=== PATIENT | male | born 1965 | race American Indian/Alaskan Native ===

== ENCOUNTER 2018-12-02 21:44 | Observation (INO) | payer SELFPAY ==
--- NOTE | 2018-12-02 21:57 | Event Note ---
ED Screening Note ED Screening Note: severe left sided chest pain vomit x 1 today off and on for 2 days pmh denies rx denies This initial assessment/diagnostic orders/clinical plan/treatment(s) is/are subject to change based on patients health status, clinical progression and re- assessment by fellow clinical providers in the ED. Further treatment and workup at subsequent clinical providers discretion. Patient/guardian urged not to elope from the ED as their condition may be serious if not clinically assessed and managed. Initial orders include: labs ekg xray
--- NOTE | 2018-12-02 22:54 | XRay Report ---
CHEST 2 VIEWS INDICATION / CLINICAL INFORMATION: chest pain. COMPARISON: None available. FINDINGS: SUPPORT DEVICES: None. HEART / MEDIASTINUM: No significant abnormality. LUNGS / PLEURA: No significant pulmonary or pleural abnormality. No pneumothorax. ADDITIONAL FINDINGS: No significant additional findings. IMPRESSION: 1. No acute findings. Signer Name: Erwin Martinez MD Signed: 12/02/2018 10:49 PM Workstation Name: [id number]
[2018-12-02 22:56] LABS: Basophils % (Auto) 0.3 % (0.0-1.8); Hematocrit 43.1 % (35.5-45.6); Hemoglobin 14.7 gm/dl (11.8-15.2); Lymphocytes # (Auto) 2.5 K/mm3 (1.2-5.4); Lymphocytes % (Auto) 19.1 % (13.4-35.0); Mean Corpuscular HGB Conc 34 % (32-34); Mean Corpuscular Volume 99 fl (84-94); Monocytes # (Auto) 0.8 K/mm3 (0.0-0.8); Monocytes % (Auto) 6.6 % (0.0-7.3); Platelet Count 335 K/mm3 (140-440); Red Blood Count 4.37 M/mm3 (3.65-5.03); Red Cell Distribution Width 13.5 % (13.2-15.2)
[2018-12-02 23:12] LABS: Alanine Aminotransferase 26 units/L (7-56); BUN/Creatinine Ratio 16; Blood Urea Nitrogen 24 mg/dL (9-20); Hemolysis Index 3
[2018-12-03 03:17] LABS: Bilirubin,Urine NEG (Negative); Blood,Urine NEG (Negative); Color,Urine Yellow (Yellow); Mucus,Urine FEW /HPF; Urobilinogen,Urine < 2.0 mg/dL (<2.0)
--- NOTE | 2018-12-03 04:28 | XRay Report ---
RIGHT HAND, 2 VIEWS 12/03/2018 INDICATION / CLINICAL INFORMATION: injury. COMPARISON: None available. FINDINGS: Soft tissue swelling of the base of the ring finger. No fracture or dislocation. No radiopaque soft tissue foreign body. Signer Name: Erwin Martinez MD Signed: 12/03/2018 4:23 AM Workstation Name: [id number]
[2018-12-03] MEDS ORDERED: NACL 0.9% 1000 ML 1,000 ML IV ONE (05:37)
[2018-12-03] MEDS ORDERED: ZOFRAN IV ONE (05:37)
[2018-12-03] MEDS ORDERED: TORADOL IV ONE (05:49)
[2018-12-03] MEDS ORDERED: TORADOL ONE (05:52)
--- NOTE | 2018-12-03 06:21 | Emergency Department Report ---
ED Chest Pain HPI - General Chief Complaint: Chest Pain Stated Complaint: CHEST PAIN HAND DIZZINESS Time Seen by Provider: 12/03/18 06:10 Source: patient Mode of arrival: Ambulatory Limitations: No Limitations - History of Present Illness Initial Comments: Patient is a 53-year-old male that presents emergency room with complaints of left-sided chest pain that started 2 days ago. Patient states his symptoms are worsening. Patient states today he started having dizziness, shortness of breath and he threw up one time today. Patient states the chest pain becoming more frequent and more severe. Patient states chest pain is 10 out of 10. Patient states the pain is nonradiating. MD Complaint: chest pain -: Sudden Onset: during rest Pain Location: substernal, left chest Pain Radiation: LUE Severity: severe Severity scale (0 -10): 7 Quality: pressure Consistency: constant Improves With: rest Worsens With: exertion re: nausea, vomting, dyspnea. denies: diaphoresis, sense of impending doom Other Symptoms: denies: cough, fever, syncope, rash, acid taste in mouth, leg swelling, palpitations, burping Treatments Prior to Arrival: none Aspirin use within the Past 7 Days: (0) No - Related Data On Oral Contraceptives: No Home Medications Medication Instructions Recorded Confirmed Last Taken No Known Home Medications [No 12/03/18 12/03/18 Unknown Reported Home Medications] Allergies Allergy/AdvReac Type Severity Reaction Status Date / Time No Known Allergies Allergy Verified 12/03/18 08:06 Heart Score - HEART Score History: Moderately suspicious EKG: Non-specific Age: 45-65 Risk factors: No known risk factors Troponin: < normal limit HEART Score: 3 ED Review of Systems ROS: Stated complaint: CHEST PAIN HAND DIZZINESS Other details as noted in HPI Constitutional: denies: chills, fever Eyes: denies: eye pain, eye discharge, vision change ENT: denies: ear pain, throat pain Respiratory: shortness of breath. denies: cough, wheezing Cardiovascular: chest pain. denies: palpitations Endocrine: no symptoms reported Gastrointestinal: nausea, vomiting. denies: abdominal pain, diarrhea Genitourinary: denies: urgency, dysuria Musculoskeletal: denies: back pain, joint swelling, arthralgia Skin: denies: rash, lesions Neurological: denies: headache, weakness, paresthesias Psychiatric: denies: anxiety, depression Hematological/Lymphatic: denies: easy bleeding, easy bruising ED Past Medical Hx - Past Medical History Previous Medical History?: Yes Hx Asthma: Yes - Surgical History Past Surgical History?: No - Family History Family history: no significant - Social History Smoking Status: Former Smoker Substance Use Type: None - Medications Home Medications: Home Medications Medication Instructions Recorded Confirmed Last Taken Type No Known Home Medications [No 12/03/18 12/03/18 Unknown History Reported Home Medications] ED Physical Exam - General Limitations: No Limitations General appearance: alert, in no apparent distress - Head Head exam: Present: atraumatic, normocephalic - Eye Eye exam: Present: normal appearance - ENT ENT exam: Present: mucous membranes moist - Neck Neck exam: Present: normal inspection - Respiratory Respiratory exam: Present: normal lung sounds bilaterally. Absent: respiratory distress - Cardiovascular Cardiovascular Exam: Present: regular rate, normal rhythm. Absent: systolic murmur, diastolic murmur, rubs, gallop - GI/Abdominal GI/Abdominal exam: Present: soft, normal bowel sounds - Rectal Rectal exam: Present: deferred - Extremities Exam Extremities exam: Present: normal inspection - Back Exam Back exam: Present: normal inspection - Neurological Exam Neurological exam: Present: alert, oriented X3 - Psychiatric Psychiatric exam: Present: normal affect, normal mood - Skin Skin exam: Present: warm, dry, intact, normal color. Absent: rash ED Course Vital Signs 12/02/18 12/03/18 12/03/18 21:52 02:34 02:39 Temperature 98.3 F Pulse Rate 77 Respiratory 18 23 16 Rate Blood Pressure 135/92 Blood Pressure [Left] O2 Sat by Pulse 97 Oximetry 12/03/18 12/03/18 12/03/18 02:40 03:01 03:30 Temperature 98.4 F Pulse Rate 62 71 60 Respiratory 18 12 16 Rate Blood Pressure 162/72 169/73 Blood Pressure 151/81 [Left] O2 Sat by Pulse 99 95 95 Oximetry 12/03/18 12/03/18 12/03/18 04:00 04:31 04:41 Temperature Pulse Rate 68 63 64 Respiratory 17 16 16 Rate Blood Pressure 135/78 139/70 139/70 Blood Pressure [Left] O2 Sat by Pulse 99 95 97 Oximetry 12/03/18 12/03/18 12/03/18 04:51 05:01 05:11 Temperature Pulse Rate 64 62 65 Respiratory 18 15 16 Rate Blood Pressure 139/70 143/80 143/80 Blood Pressure [Left] O2 Sat by Pulse 96 99 96 Oximetry 12/03/18 12/03/18 12/03/18 05:21 05:30 05:41 Temperature Pulse Rate 64 63 66 Respiratory 19 17 14 Rate Blood Pressure 143/80 141/76 141/76 Blood Pressure [Left] O2 Sat by Pulse 96 93 99 Oximetry 12/03/18 12/03/18 12/03/18 05:51 06:01 06:11 Temperature Pulse Rate 81 59 L 58 L Respiratory 17 16 15 Rate Blood Pressure 141/76 141/76 141/76 Blood Pressure [Left] O2 Sat by Pulse 96 99 99 Oximetry 12/03/18 12/03/18 12/03/18 06:21 06:31 06:41 Temperature Pulse Rate 64 58 L 58 L Respiratory 23 15 16 Rate Blood Pressure 141/76 141/76 141/76 Blood Pressure [Left] O2 Sat by Pulse 100 99 98 Oximetry 12/03/18 12/03/18 12/03/18 06:51 07:01 07:11 Temperature Pulse Rate 59 L 61 67 Respiratory 15 19 13 Rate Blood Pressure 141/76 141/76 125/60 Blood Pressure [Left] O2 Sat by Pulse 100 100 99 Oximetry 12/03/18 12/03/18 12/03/18 07:12 07:21 07:30 Temperature Pulse Rate 64 57 L 60 Respiratory 16 13 14 Rate Blood Pressure 125/60 138/67 Blood Pressure 125/60 [Left] O2 Sat by Pulse 96 98 94 Oximetry 12/03/18 12/03/18 12/03/18 07:41 07:51 08:00 Temperature Pulse Rate 58 L 58 L 72 Respiratory 15 15 18 Rate Blood Pressure 138/67 138/67 138/67 Blood Pressure [Left] O2 Sat by Pulse 97 97 97 Oximetry 12/03/18 12/03/18 12/03/18 09:37 10:02 10:04 Temperature Pulse Rate Respiratory Rate Blood Pressure 126/72 174/84 159/69 Blood Pressure [Left] O2 Sat by Pulse Oximetry 12/03/18 12/03/18 12/03/18 10:05 10:07 10:09 Temperature Pulse Rate Respiratory Rate Blood Pressure 149/78 145/89 133/88 Blood Pressure [Left] O2 Sat by Pulse Oximetry - Reevaluation(s) Reevaluation #1: Discussed all results with patient. Patient to be admitted to the hospitalist service. Patient agrees with plan of care. 12/03/18 07:46 - Consultations Consultation #1: Hospitalist consulted for admission. Hospitalist to admit patient and assumed care of the patient. Bridging orders placed if the hospitalist requested. 12/03/18 07:46 VELASQUEZ score - Velasquez Score Age > 65: (0) No Aspirin use within the Past 7 Days: (0) No 3 or more CAD Risk Factors: (0) No 2 or more Angina events in past 24 hrs: (1) Yes Known CAD with more than 50% Stenosis: (0) No Elevated Cardiac Markers: (0) No ST Deviation Greater than 0.5mm: (0) No VELASQUEZ Score: 1 ED Medical Decision Making - Lab Data Result diagrams: 12/02/18 22:02 12/02/18 22:02 - EKG Data -: EKG Interpreted by Me EKG shows normal: sinus rhythm, axis, intervals, QRS complexes, ST-T waves Rate: normal - EKG Data Interpretation: LVH - Radiology Data Radiology results: report reviewed, image reviewed interpreted by me: Chest x-ray reviewed and no acute findings on chest x-ray RIGHT HAND, 2 VIEWS 12/03/2018 INDICATION / CLINICAL INFORMATION: injury. COMPARISON: None available. FINDINGS: Soft tissue swelling of the base of the ring finger. No fracture or dislocation. No radiopaque soft tissue foreign body. CHEST 2 VIEWS INDICATION / CLINICAL INFORMATION: chest pain. COMPARISON: None available. FINDINGS: SUPPORT DEVICES: None. HEART / MEDIASTINUM: No significant abnormality. LUNGS / PLEURA: No significant pulmonary or pleural abnormality. No pneumothorax. ADDITIONAL FINDINGS: No significant additional findings. IMPRESSION: 1. No acute findings. - Medical Decision Making Patient is a 53-year-old mellitus emergency with complaints of chest pain and shortness of breath and nausea. Patient admitted to the hospitalist service. Patient's EKG negative. Patient's initial cardiac workup negative. Patient's labs unremarkable except for new onset renal insufficiency. - Differential Diagnosis chest pain. Shortness of breath. ACS. Nausea. Critical Care Time: Yes Critical care attestation.: If time is entered above; I have spent that time in minutes in the direct care of this critically ill patient, excluding procedure time. Critical Care Time: 35 minutes ED Disposition Clinical Impression: SOB (shortness of breath), Renal insufficiency, Dizziness, Hyponatremia Chest pain Qualifiers: Chest pain type: unspecified Qualified Code(s): R07.9 - Chest pain, unspecified Disposition: DC-09 OP ADMIT IP TO THIS HOSP Is pt being admited?: Yes Does the pt Need Aspirin: No Condition: Critical Time of Disposition: 07:46
[2018-12-03] MEDS ORDERED: ASPIRIN PO ONE (06:31)
[2018-12-03] MEDS ORDERED: NACL 0.9% 1000 ML 1,000 ML IV SCH (08:00)
[2018-12-03] MEDS ORDERED: ZOFRAN IV PRN (12:11)
[2018-12-03] MEDS ORDERED: MORPHINE IV PRN (12:11)
[2018-12-03] MEDS ORDERED: PROVENTIL IH PRN (12:11)
[2018-12-03] MEDS ORDERED: SODIUM CHLORIDE FLUSH SYRINGE 10 ML IV PRN (12:11)
[2018-12-03] MEDS ORDERED: TYLENOL PO PRN (12:11)
--- NOTE | 2018-12-03 12:11 | History and Physical Report ---
History of Present Illness Date of examination: 12/03/18 Date of admission: 12/03/18 07:46 Past History Past Medical History: No medical history Past Surgical History: appendectomy, Other (left inguinal hernia rep[air) Social history: single, full code. denies: smoking, alcohol abuse Family history: no significant family history Medications and Allergies Allergies Allergy/AdvReac Type Severity Reaction Status Date / Time No Known Allergies Allergy Verified 12/03/18 08:06 Home Medications Medication Instructions Recorded Confirmed Last Taken Type Famotidine [Pepcid] 20 mg PO BID #30 tablet 12/03/18 Unknown Rx Active Meds: Active Medications Sodium Chloride (Nacl 0.9% 1000 Ml) 1,000 mls @ 125 mls/hr IV DIRECT BABAK Exam - Physical Exam Narrative exam: Gen: Not in acute distress, lying in bed, HEENT: Normocephalic, atraumatic Neck: supple, no JVD Heart: S1 and S2 reg, no murmurs, rubs or gallop Lungs: Clear to auscultation bilat, no wheeze Abd: soft, non tender, non distended, normal BS Ext: No edema, no clubbing, no cyanosis Neuro:awake,alert, Oriented X 3. No focal signs Psych: Normal mood - Constitutional Vitals: Temp Pulse Resp BP Pulse Ox 98.4 F 72 18 133/88 97 12/03/18 02:40 12/03/18 08:00 12/03/18 08:00 12/03/18 10:09 12/03/18 08:00 Results - Labs CBC & Chem 7: 12/02/18 22:02 12/02/18 22:02 Labs: Abnormal lab results 12/02/18 12/02/18 Range/Units 22:02 22:02 WBC 12.8 H (4.5-11.0) K/mm3 MCV 99 H (84-94) fl MCH 34 H (28-32) pg Seg Neutrophils % 74.0 H (40.0-70.0) % Seg Neutrophils # 9.5 H (1.8-7.7) K/mm3 Sodium 131 L (137-145) mmol/L Chloride 95.9 L (98-107) mmol/L Carbon Dioxide 17 L (22-30) mmol/L BUN 24 H (9-20) mg/dL Glucose 187 H (75-100) mg/dL Total Protein 8.7 H (6.3-8.2) g/dL Assessment and Plan Chest pain Admit to Telemetry serial Troponins Stress test to r/o acute coronary syndrome
--- NOTE | 2018-12-03 13:35 | Treadmill Report ---
TREADMILL EXERCISE STRESS TEST REPORT REASON FOR STUDY: Chest pain. STRESS TEST PROTOCOL: The patient completed 10 minutes and 31 seconds of a Dain protocol. He attained a peak heart rate of 150 per minute, which is 90% of his age predicted maximum (11.2 METs). No ischemic ECG changes. No chest pain. There were occasional PVCs during exercise. The test was terminated due to fatigue. IMPRESSION: Negative stress test. Nuclear imaging report to follow. [facility]# [id number] MARLA/NTS
--- NOTE | 2018-12-03 18:07 | Discharge Summary ---
Providers - Providers Date of Admission: 12/03/18 07:46 Date of discharge: 12/03/18 Attending physician: JAZ RONDON 12/03/18 Consult to Case Management [CONS] Routine Services Needed at Discharge: Capacity Planner Comment:: bettie planning Primary care physician: SERENA PERKINS MD Hospitalization Condition: Fair Hospital course: Patient is a 53-year-old male that presented to emergency room with complaints of left-sided chest pain for 2 days. Also started having dizziness, shortness of breath and vomited once. He was seen and evaluated in ED. Initial troponin was normal. He was given Aspirin and admitted to rule out acute coronary syndrome. Stress test was done was negative. Chest pain non-cardiac due to GERD. He was then discharged home. Disposition: DC-01 TO HOME OR SELFCARE - Discharge Diagnoses (1) GERD (gastroesophageal reflux disease) Status: Acute (2) Chest pain Status: Acute Qualifiers: Chest pain type: unspecified Qualified Code(s): R07.9 - Chest pain, unspecified (3) Hyponatremia Status: Acute Core Measure Documentation - Palliative Care Palliative Care/ Comfort Measures: Not Applicable - Core Measures Any of the following diagnoses?: none Exam - Constitutional Vitals: Temp Pulse Resp BP Pulse Ox 98.5 F 60 18 100/52 95 12/03/18 14:13 12/03/18 14:13 12/03/18 14:13 12/03/18 14:13 12/03/18 15:15 Plan Activity: no restrictions Additional Instructions: 1.Follow up with Serena sparks in 1 week Follow up with: SERENA GRAY MD [Primary Care Provider] - 3-5 Days Prescriptions: Famotidine [Pepcid] 20 mg PO BID #30 tablet
[2018-12-03 20:31] VITALS: BP 112/65
[2018-12-03] MEDS ORDERED: SODIUM CHLORIDE FLUSH SYRINGE 10 ML IV SCH (22:00)
--- NOTE | 2018-12-04 04:05 | Treadmill Report ---
THALLIUM REPORT REASON FOR STUDY: Chest pain. IMAGING PROTOCOL: The patient received 10 mCi of technetium-99m Tetrofosmin for rest imaging, and 28 mCi of the technetium-99m Tetrofosmin for stress imaging. Imaging for all procedures was completed 30-90 minutes following the initial injection of Technetium 99m Tetrofosmin. SPECT imaging in the 180 degree arc was performed in the right anterior oblique projection. Computerized reconstruction of the images was performed for analysis. NUCLEAR IMAGING RESULTS: Normal left ventricular cavity size with no change from stress to rest. Distribution of radionuclide within the left ventricle revealed a large area of photo-induction involving the inferior wall. The degree of photo-induction is moderate. Rest imaging does not show any significant improvement in this defect. In addition, there is a medium size area of photo-induction involving the apex. The degree of photo-induction is moderate. Rest imaging does not show any significant improvement in this defect. Gated SPECT imaging revealed normal global LV systolic function with no significant wall motion abnormalities. The calculated left ventricular ejection fraction is 57%. IMPRESSION: Large fixed inferior defect. Medium size fixed apical defect. Normal global LV systolic function with no significant wall motion abnormalities. EF 57%. 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 However, in the absence of significant wall motion abnormalities, the defects noted in this patient are probably artifactual. No evidence of significant stress-induced ischemia. JOB# [id number] MARLA/CHANCE DRAKE
== END 2018-12-03 20:39 | disposition home or self-care (01) ==
LOC: ED 21:44 → 4A 12-03 07:46
PROVIDERS: ADMIT Internal Medicine; ATTEND Internal Medicine
DX: R07.89 Other chest pain (principal); I24.9 Acute ischemic heart disease, unspecified; R94.39 Abnormal result of other cardiovascular function study; Z90.89 Acquired absence of other organs; Z98.890 Other specified postprocedural states; R42 Dizziness and giddiness
CPT/HCPCS: 36415; 71046; 73120; 78452; 80053; 81001; 84484; 85025; 85379; 93005; 93010; 93017; 96361; 96374; 96375; 99291; A9502; G0378; J1885; J2405; J7030